=== PATIENT | female | born 1995 | race Asian ===

== ENCOUNTER 2017-07-13 10:50 | Outpatient (CLI) | payer OTHER ==
--- NOTE | 2017-07-13 12:59 | CT ---
ABDOMEN CT WITH CONTRAST PELVIC CT WITH CONTRAST: History: Recurrent rectal bleeding. Abdominal bloating. Symptoms x 4 months. Comparison: None. Technique: An abdomen and pelvic CT were performed with IV and oral contrast. Coronal reformatted heather ges are submitted for interpretation. FINDINGS: ABDOMEN CT: Lung bases are clear. Heart size is within normal limits. No significant pericardial fluid. The desce nding thoracic aorta and abdominal aorta have a normal caliber. No periaortic fat stranding. Gallbladder is unremarkable. Liver, spleen, pancreas, and adrenal glands have appropriate enhancement. Bilateral extrarenal pelvises are noted. Bilaterally, no obstructive uropathy. Symmetric enhancement of the kidneys. No gastrohepatic, retrocrural or periportal lymphadenopathy. There are scattered, nonspecific mesenteric lymph nodes. There are enlarged left periaortic lymph nod es. Loose Hand Packer lymph node measures 1.3 cm. No mesenteric mass, lymphadenopathy, free air or free fluid. Gastric mucosa, duodenum and multiple normal caliber small bowel loops are noted. Ileocecal junction is normal. Appendix is not appreciated. No inflammation of the cecal apex. There are a few nonspecifi c lymph nodes adjacent to the cecal apex. Inadequate evaluation of the colon due to inadequate oral c ontrast opacification. There is fecal material in a nondistended, nondilated colon. PELVIC CT: Uterus and adnexal structures are unremarkable. No pelvic masses, lymphadenopathy, free air or free f luid. Urinary bladder is unremarkable. There are no lytic or blastic lesions in the osseous structures. IMPRESSION: 1. No acute abnormality in the abdomen or pelvis. 2. Nonspecific mesenteric lymph nodes. Correlate for mesenteric or lymphadenitis. Given the presence of an enlarged periaortic lymph node, other etiologies including inflammatory or malignant processes cannot be excluded. Clinical correlation is essential. POS: [facility]
== END 2017-07-13 10:51 | disposition home or self-care (01) ==
LOC: CT 10:50
PROVIDERS: ATTEND Internal Medicine Gastroenterology
DX: K62.5 Hemorrhage of anus and rectum (principal); R14.0 Abdominal distension (gaseous)
CPT/HCPCS: 74177

== ENCOUNTER 2019-08-23 16:49 | Emergency (ER) | payer OTHER ==
[2019-08-23 18:27] LABS: #Basophils 0.1 thou/uL (0.0-0.2); #Eosinphils 0.3 thou/uL (0.0-0.7); #Lymphocytes 2.4 thou/uL (1.20-3.40); #Monocytes 0.6 thou/uL (0.11-0.59); #Neutrophils 7.8 thou/uL (1.40-6.50); %Basophils 0.6 % (0.0-1.0); %Eosinophils 3.1 % (0.0-10.0); %Lymphocytes 21.4 % (21.0-51.0); %Monocytes 5.2 % (0.0-10.0); %Neutrophils 69.7 % (42.0-75.0); Mean Corpuscular HGB CONC 32.7 g/dL (32.0-36.0); Mean Corpuscular Hemoglobin 25.4 pg (27.0-31.0); Mean Corpuscular Volume 77.6 fL (78.0-98.0); Mean Platelet Volume 11.1 fL (7.4-10.4); Platelet Count 176 thou/uL (130-400); RBC Distribution Width 12.8 % (11.5-14.5); Red Blood Cell (RBC) Count 5.14 mill/uL (4.20-5.40); White Blood Cell (WBC) Count 11.1 thou/uL (4.8-10.8)
[2019-08-23 18:56] LABS: ALT (SGPT) 17 U/L (8-55); AST (SGOT) 16 U/L (5-34); Albumin 4.7 g/dL (3.5-5.0); Alkaline Phosphatase 73 U/L (40-110); Anion Gap 15 mmol/L (10-20); BUN (Urea Nitrogen) 8 mg/dL (7.0-18.7); Bilirubin, Total 0.2 mg/dL (0.2-1.2); Calc. Creatinine Clearance 0 mL/min (70-130); Calcium 10.1 mg/dL (7.8-10.44); Carbon Dioxide 22 mmol/L (22-29); Chloride 106 mmol/L (98-107); Estimated GFR-MDRD 85; Globulin 3.3 g/dL (2.4-3.5); Glucose 92 mg/dL (70-105); Lipase 22 U/L (8-78); Potassium 4.2 mmol/L (3.5-5.1); Sodium 139 mmol/L (136-145)
[2019-08-23 19:17] LABS: BHCG - Serum Negative (NEGATIVE); Pregs Control Background? CLEAR/WHITE (CLR/WHITE); Pregs Control Bar Appear? YES (CONTROL BAR)
== END 2019-08-23 18:47 | disposition home or self-care (01) ==
LOC: ERS 16:49
DX: K62.5 Hemorrhage of anus and rectum (principal); K21.9 Gastro-esophageal reflux disease without esophagitis
CPT/HCPCS: 80053; 82274; 83690; 84703; 85025; 99283

== ENCOUNTER 2019-08-31 13:19 | Outpatient (CLI) | payer OTHER ==
--- NOTE | 2019-08-31 16:51 | NM ---
NUCLEAR MEDICINE ABDOMINAL SCAN JOSEPHINE: 08/31/19 HISTORY: 24-year-old female with melena, hematochezia. RADIOPHARMACEUTICAL: 12 millicuries of technetium 99m pertechnetate injected intravenously. FINDINGS: Planar images of the abdomen for an hour demonstrate no evidence of abnormal focal uptake simultaneou sly at the time of uptake in the stomach. IMPRESSION: No evidence of ectopic gastric mucosa containing Meckel's diverticulum. POS: [facility]
== END 2019-08-31 13:20 | disposition home or self-care (01) ==
LOC: NM 13:19
PROVIDERS: ATTEND Internal Medicine Gastroenterology
DX: K92.1 Melena (principal)
CPT/HCPCS: 78290; A9512